=== PATIENT | female | born 1945 | race Caucasian/White ===

== ENCOUNTER 2019-06-07 11:28 | Outpatient (CLI) | payer MEDICARE, BC ==
--- NOTE | 2019-06-07 13:03 | CT ---
Exam: CT angiogram of the neck HISTORY: Evaluate for carotid occlusion/stenosis. COMPARISON: None TECHNIQUE: CT angiogram the neck performed in the axial plane. Three-dimensional reformatted images a re submitted for dictation FINDINGS: Visualized brain parenchyma demonstrates appropriate enhancement Orbits: Bilateral ocular lens implants are noted and appear to be appropriately positioned. There is a band around the right lobe. Symmetric attenuation the optic nerves and ocular rectus muscles. Retrobulbar fat is preserved. Sinuses and mastoid air cells: Adequate aeration. Oral cavity: Limited evaluation due to dental amalgam artifact. No obvious masses in the oral cavity. Midline fatty raphae of the tongue preserved. Incidental torus veli palatini. Epiglottis is normal caliber. Preepiglottic fat is preserved. The supraglottic, glottic and subglotti c larynx is on markable Symmetric attenuation of the paraspinal and sternocleidomastoid muscles Symmetric attenuation of the parotid and submandibular glands Thyroid gland is heterogeneous with evidence of solid attenuation nodules along with calcifications. Cervical spine vertebral body height is maintained. There is no fracture. There are varying degrees o f central canal stenosis and neural foraminal narrowing on the basis of degenerative change Visualized lung parenchyma demonstrates no significant masses or consolidation. Chronic changes are s uspected Mediastinum and central pulmonary arteries are unremarkable CT ANGIOGRAM: The aortic arch has appropriate enhancement and luminal diameter Right carotid: The innominate artery origin has appropriate enhancement and luminal diameter. The com mon carotid artery has multifocal mild stenosis due to noncalcified plaque. The right carotid bifurcation and proximal internal carotid artery, there is a combination of calcified and noncalcifie d lack. There is resultant 41% stenosis. There is a small noncalcified plaque in the distal right internal carotid artery without significant stenosis. Left carotid: Left carotid artery origin has appropriate enhancement and luminal diameter. There is s hort segment mild narrowing of the distal common carotid artery due to calcified and noncalcified plaque. There is a combination of calcified and noncalcified plaque in the left carotid bifurcation a nd proximal internal carotid artery. There is short segment 42% stenosis in the left carotid bifurcation. There is calcified plaque without significant stenosis distal left internal carotid pancho ry Bilateral visualized subclavian arteries are patent. There is atherosclerosis with presumed significant narrowing at the origin of the right vertebral art nathanael. The origin left vertebral artery also demonstrates atherosclerotic disease and is incompletely evaluated but there is suggestion of significant stenosis. Left vertebral artery origin is directly o ff of the aorta. Vertebral arteries are nearly codominant. The left vertebral artery slightly larger CT angiogram of the head is incomplete but there is evidence of atherosclerosis of both cavernous seg ments without evidence of high-grade narrowing in the visualized gambell of Fuchs and posterior circulation IMPRESSION: 1. Chronic disease involving both carotid bifurcation and proximal internal carotid arteries. There i s evidence of mild, approximately 41% stenosis involving both carotid arteries. 2. Limited evaluation the origin of both vertebral arteries. There does appear to be calcified plaque involving both vertebral artery origins. The left vertebral artery originates directly off the aorta. 3. Heterogeneous thyroid gland, incompletely evaluated. 4. If there is need for further evaluation of the cervical carotid and vertebral arteries, consider c onventional angiography
[2019-06-07] MEDS ORDERED: Iopamidol 370 76% 100 ML VIAL ONE (14:54)
== END 2019-06-07 11:29 | disposition home or self-care (01) ==
LOC: CT 11:28
PROVIDERS: ATTEND Thoracic Surgery (Cardiothoracic Vascular Surgery)
DX: I65.23 Occlusion and stenosis of bilateral carotid arteries (principal); E07.9 Disorder of thyroid, unspecified
CPT/HCPCS: 70498; 82565; Q9967